=== PATIENT | male | born 1975 | race Caucasian/White ===

== ENCOUNTER 2023-06-06 16:37 | Emergency (ER) | payer MEDICAID ==
[~2023-06-06] VITALS: Ht 167.6 cm; Wt 73.2 kg
[2023-06-06 16:39] VITALS: TEMP 98.8
[2023-06-06] MEDS ORDERED: CEFD300C3 PO (18:23)
[2023-06-06] MEDS ORDERED: ALBU8HFA INH (18:23)
[2023-06-06 18:29] VITALS: BP 98/76; PULSE 93; RESP 18; O2SAT 96
== END 2023-06-06 18:32 | disposition home or self-care (01) ==
LOC: ER 16:38
DX: J02.9 Acute pharyngitis, unspecified (principal); Z20.822 Contact with and (suspected) exposure to COVID-19
CPT/HCPCS: 36415; 71045; 87502; 87503; 87811; 99284